=== PATIENT | male | born 2005 | race Caucasian/White ===

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

== ENCOUNTER 2025-03-13 14:39 | Emergency (ER) | payer SELFPAY ==
[2025-03-13 14:45] VITALS: BP 148/81; PULSE 99; RESP 16; TEMP 37; O2SAT 98; BMI 19.9
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
[2025-03-13] MEDS: TET/DIPHTH/PERT-ADULT 0.5ML SYRINGE 0.5 ML IM (15:26)
[2025-03-13] MEDS: BACITRACIN OINT 0.9GM UDP 1 EACH TP (15:26)
[2025-03-13 15:29] VITALS: BP 113/74; PULSE 99; RESP 16; TEMP 36.7; O2SAT 99
== END 2025-03-13 15:30 | disposition home or self-care (01) ==
PROVIDERS: Emergency Provider Student in an Organized Health Care Education/Training Program
DX: T24.231A Burn of second degree of right lower leg, initial encounter (principal); X17.XXXA Contact with hot engines, machinery and tools, initial encounter
CPT/HCPCS: 90471; 90715; 99283

== ENCOUNTER 2025-05-11 10:00 | Outpatient (RCR) | payer MEDICAID, SELFPAY | END 2025-05-11 23:59 | disposition home or self-care (01) | LOC: OT 10:00 | PROVIDERS: Visit Provider Nurse Practitioner | DX: S52.202D Unspecified fracture of shaft of left ulna, subsequent encounter for closed fracture with routine healing (principal); S52.302D Unspecified fracture of shaft of left radius, subsequent encounter for closed fracture with routine healing | CPT/HCPCS: 97014; 97032; 97035; 97110; 97140; 97165; G0283 ==

== ENCOUNTER 2025-06-16 10:00 | Outpatient (RCR) | payer MEDICAID, SELFPAY | END 2025-06-16 23:59 | disposition home or self-care (01) | LOC: OT 10:00 | PROVIDERS: Visit Provider Nurse Practitioner | DX: S52.502D Unspecified fracture of the lower end of left radius, subsequent encounter for closed fracture with routine healing (principal); S52.602D Unspecified fracture of lower end of left ulna, subsequent encounter for closed fracture with routine healing | CPT/HCPCS: 97014; 97032; 97035; 97110; 97140; 97168; 97530; G0283 ==